=== PATIENT | female | born 1985 | race Caucasian/White ===

== ENCOUNTER → 2017-05-21 | Outpatient (CLI) | payer BC, OTHER ==
[~2017-05-21] MED LIST: No meds per pt.
== END ==
LOC: STAR 08:31
PROVIDERS: ATTEND Surgery
DX: Z02.9 Encounter for administrative examinations, unspecified (principal)

== ENCOUNTER 2017-06-07 07:06 | Day surgery (SDC) | payer BC, OTHER ==
[2017-05-21 09:22] VITALS: BP 127/85
[~2017-06-07] VITALS: Ht 177.8 cm; Wt 106.8 kg
[2017-06-07] MEDS ORDERED: MIDAZOLAM 1 MG/ML, 2ML ONE (07:13)
[2017-06-07] MEDS ORDERED: FENTANYL PF 250 MCG/5ML ONE (07:13)
[2017-06-07] MEDS ORDERED: LACTATED RINGERS 1,000 ML IV SCH (07:34)
[2017-06-07] MEDS ORDERED: PROMETHAZINE 12.5 MG SUPP PR PRN (08:00)
[2017-06-07] MEDS ORDERED: ACETAMINOPHEN 325 MG TABLET PO PRN (08:00)
[2017-06-07] MEDS ORDERED: FENTANYL PF 100 MCG/2ML IV PRN (08:00)
[2017-06-07] MEDS ORDERED: hydrALAzine 20 MG/ML, 1ML IV PRN (08:00)
[2017-06-07] MEDS ORDERED: LABETALOL 5MG/ML, 20ML IV PRN (08:00)
[2017-06-07] MEDS ORDERED: MEPERIDINE/PF 25MG/0.5ML IVPush PRN (08:00)
[2017-06-07] MEDS ORDERED: HYDROmorphone 1 MG/ML, 1ML IV PRN (08:00)
[2017-06-07] MEDS ORDERED: ONDANSETRON 2MG/ML, 2ML IVPush PRN (08:00)
[2017-06-07] MEDS ORDERED: OXYcodone 5 MG/5 ML ORAL.SOL UDC PO PRN (08:00)
[2017-06-07 08:30] LABS: HCG UR SG 1.026 (1.003-1.030)
[2017-06-07] MEDS ORDERED: BUPIVACAINE/PF 0.5% ONE (08:30)
[2017-06-07] MEDS ORDERED: ONDANSETRON 2MG/ML, 2ML ONE (08:38)
[2017-06-07] MEDS ORDERED: DEXAMETHASONE 4 MG/ML, 1ML ONE ×2 (08:38→08:39)
[2017-06-07] MEDS ORDERED: CEFAZOLIN 1,000 MG ONE ×2 (08:39)
[2017-06-07] MEDS ORDERED: ROCURONIUM 10 MG/ML,10ML ONE (08:40)
[2017-06-07] MEDS ORDERED: KETOROLAC 30 MG/1 ML ONE (08:40)
[2017-06-07] MEDS ORDERED: PROPOFOL 10 MG/ML, 20ML ONE (08:40)
[2017-06-07] MEDS ORDERED: ACETAMINOPHEN 650 MG/20.3 ML UDC ONE (09:24)
== END 2017-06-07 11:35 ==
LOC: OR 07:06
PROVIDERS: ATTEND Surgery
DX: K42.0 Umbilical hernia with obstruction, without gangrene (principal); Z98.890 Other specified postprocedural states
CPT/HCPCS: 49587; 81025; C1781; J0690; J1100; J1885; J2250; J2405; J2704; J3010; J3490; J7120

== ENCOUNTER 2018-02-22 13:29 | Inpatient (IN) | payer OTHER ==
[~2018-02-22] VITALS: Ht 177.8 cm; Wt 119.0 kg
[2018-02-22] MEDS ORDERED: MISOPROSTOL 200 MCG TABLET ONE (13:49)
[2018-02-22] MEDS ORDERED: LIDOCAINE/PF 1%, 30ML ONE (13:49)
[2018-02-22] MEDS ORDERED: OXYTOCIN 30U/ 0.9% NaCL 500ML 500 ML ONE (13:49)
[2018-02-22] MEDS ORDERED: NEWBORN KIT ONE (13:49)
[2018-02-22] MEDS: LACTATED RINGERS 1,000 ML IV SCH ×2 (13:50→15:15)
[2018-02-22] MEDS ORDERED: OXYTOCIN 30U/ 0.9% NaCL 500ML 500 ML IV ONE (13:50)
[2018-02-22] MEDS ORDERED: FENTANYL PF 100 MCG/2ML IVPush PRN (14:00)
[2018-02-22] MEDS ORDERED: ONDANSETRON 2MG/ML, 2ML IVPush PRN (14:00)
[2018-02-22] MEDS ORDERED: FENTANYL PF 100 MCG/2ML IV PRN (14:00)
[2018-02-22] MEDS ORDERED: PLEASE ENTER HEIGHT AND WEIGHT MC SCH (14:30)
[2018-02-22] MEDS: OXYTOCIN 30U/ 0.9% NaCL 500ML 500 ML IV SCH ×2 (15:15→15:24)
[2018-02-22] MEDS ORDERED: MAGNESIUM HYDROXIDE 8%, 30ML UDC PO PRN (15:30)
[2018-02-22] MEDS ORDERED: MISOPROSTOL 200 MCG TABLET PR PRN (15:30)
[2018-02-22] MEDS ORDERED: CALCIUM CARBONATE 500 MG TAB.CHEW PO PRN (15:30)
[2018-02-22] MEDS ORDERED: CARBOPROST TROMETHAMINE 250 MCG/ML, 1ML IM PRN (15:30)
[2018-02-22] MEDS ORDERED: HYDROcodone/APAP 5/325 TABLET PO PRN ×2 (15:30)
[2018-02-22] MEDS ORDERED: ONDANSETRON 2MG/ML, 2ML IV PRN (15:30)
[2018-02-22] MEDS ORDERED: MEASLES,MUMPS&RUBELLA VACC/PF 0.5 ML SQ PRN (15:30)
[2018-02-22 15:43] LABS: MEAN CORPUSCULAR HEMOGLOBIN 25.6 pg (27.0-34.8); MEAN CORPUSCULAR HGB CONC 31.9 g/dL (32.4-35.8); MEAN CORPUSCULAR VOLUME 80.4 fL (80-100); MEAN PLATELET VOLUME 10.1 fL (7.4-10.4); PLATELET COUNT 334 x10^3/uL (130-400); RED BLOOD COUNT 4.45 x10^6/uL (3.82-5.3); RED CELL DISTRIBUTION WIDTH 15.9 % (9.6-15.2)
[2018-02-22 15:44] LABS: MD YES
[2018-02-22 15:46] LABS: BANDS%(MANUAL) 4 % (0-7); LYMPH#(MANUAL) 2.48 x10^3/uL (1-3.4); LYMPHS% (MANUAL) 9 % (22-44); MONOS#(MANUAL) 2.21 x10^3/uL (0.3-2.7); MONOS% (MANUAL) 8 % (2-9); SEGS% (MANUAL) 79 % (42-75)
[2018-02-22 15:48] LABS: ANISOCYTOSIS 1+
[2018-02-22 15:49] LABS: <PLATELET ESTIMATE> ADEQUATE; HYPOCHROMIA 1+; LARGE PLATELETS 1+; POLYCHROMASIA 1+; SCHISTOCYTES 1+
[2018-02-22 15:50] VITALS: BP 155/79
[2018-02-22 17:03] VITALS: BP 129/73
[2018-02-22] MEDS ORDERED: PRENATAL VIT/IRON/FA 1 EACH TABLET ONE (17:40)
[2018-02-22] MEDS: IBUPROFEN 600 MG TABLET PO PRN (17:43)
[2018-02-22] MEDS: DOCUSATE 100 MG CAPSULE PO PRN (17:43)
[2018-02-22 19:30] VITALS: BP 132/71
[2018-02-23 00:10] VITALS: BP 121/61
[2018-02-23] MEDS: IBUPROFEN 600 MG TABLET PO PRN (04:35)
[2018-02-23 06:34] LABS: MEAN CORPUSCULAR HEMOGLOBIN 25.8 pg (27.0-34.8); MEAN CORPUSCULAR HGB CONC 32.1 g/dL (32.4-35.8); MEAN CORPUSCULAR VOLUME 80.5 fL (80-100); MEAN PLATELET VOLUME 9.4 fL (7.4-10.4); PLATELET COUNT 289 x10^3/uL (130-400); RED BLOOD COUNT 3.62 x10^6/uL (3.82-5.3); RED CELL DISTRIBUTION WIDTH 15.6 % (9.6-15.2)
[2018-02-23 06:46] LABS: BASOPHILS # (AUTO) 0.01 x10^3/uL (0-0.1); BASOPHILS % (AUTO) 0 % (0-1); EOSINOPHILS # (AUTO) 0.25 x10^3/uL (0-0.4); EOSINOPHILS % (AUTO) 1 % (1-7); LYMPHOCYTES # (AUTO) 5.32 x10^3/uL (1-3.4); LYMPHOCYTES % (AUTO) 22 % (22-44); MD SCAN; MONOCYTES # (AUTO) 1.99 x10^3/uL (0.2-0.8); MONOCYTES % (AUTO) 8 % (2-9); NEUTROPHILS # (AUTO) 16.59 x10^3/uL (1.8-6.8); NEUTROPHILS % (AUTO) 69 % (42-75)
[2018-02-23 07:45] VITALS: BP 110/66
[2018-02-23] MEDS: DOCUSATE 100 MG CAPSULE PO PRN (08:03)
[2018-02-23] MEDS ORDERED: PRENATAL VIT/IRON/FA 1 EACH TABLET PO SCH (09:00)
[2018-02-23 12:25] VITALS: BP 120/68
== END 2018-02-23 16:08 | disposition home or self-care (01) | DRG 807 ==
LOC: LDOP 13:29 → LDIP 13:50 → 2NW 16:56
PROVIDERS: ADMIT Obstetrics & Gynecology; ATTEND Obstetrics & Gynecology
PROC: 10E0XZZ Delivery of Products of Conception, External Approach (ICD-10-PCS; principal; 2018-02-22)
PROC: 3E033VJ Introduction of Other Hormone into Peripheral Vein, Percutaneous Approach (ICD-10-PCS; 2018-02-22)
DX: O99.214 Obesity complicating childbirth (principal); Z37.0 Single live birth; E66.9 Obesity, unspecified; Z3A.39 39 weeks gestation of pregnancy; Z68.37 Body mass index [BMI] 37.0-37.9, adult
CPT/HCPCS: 36415; 85025; 86850; 86900; 87340; 87806; G0378; G0475; J2590; J7120